=== PATIENT | female | born 1960 | race African-American/Black ===

== ENCOUNTER 2019-11-18 11:15 | Inpatient (IN) | payer OTHER ==
[2019-11-18 11:36] VITALS: BMI 25.9
--- NOTE | 2019-11-18 12:01 | HP ---
CIWA Score Nausea/Vomitin-No Nausea/No Vomiting Muscle Tremors: None Anxiety: 3 Agitation: 4-Moderately Restless Paroxysmal Sweats: 3 Orientation: 3-Disoriented Date>2 days Tacttile Disturbances: 0-None Auditory Disturbances: 0-None Visual Disturbances: 0-None Headache: 0-None Present CIWA-Ar Total Score: 13 - Admission Criteria OASAS Guidelines: Admission for Medically Managed Detox: Requires at least one of the followin. CIWA greater than 12 2. Seizures within the past 24 hours 3. Delirium tremens within the past 24 hours 4. Hallucinations within the past 24 hours 5. Acute intervention needed for co occurring medical disorder 6. Acute intervention needed for co occurring psychiatric disorder 7. Severe withdrawal that cannot be handled at a lower level of care (continued vomiting, continued diarrhea, abnormal vital signs) requiring intravenous medication and/or fluids 8. Admitting History and Physical - Admission Chief Complaint: " I want to be here because I need the help in staying away from drugs and alcohol." History of Present Illness: 59 year old female with history al alcohol dependence with withdrawals and cocaine use disorder. She is drinking 1 6pack of beer daily, 12 0z cans, she last drank yesterday. She was at [facility] after having a verbal altercation with her . [facility] referred her here for detox. She does remember having blackout a year ago, seizures on withdrawal. She has been drinking since the age of [age] years old. She was abstinent when she was incarcerated about 6 months but does not remember exactly when that was. She is smoking crack $50 daily on weekends, last used yesterday. She smokes ciggarettes only when she is using other substances PMH: None Psurg: None; ectopic many years ago Patient has no legal issues at this moment. Patient is not homeless. History Source: Patient Limitations to Obtaining History: No Limitations Admission ROS BHS - HPI Exam Limitations: No Limitations - Ebola screening Have you traveled outside of the country in the last 21 days: No Have you had contact with anyone from an Ebola affected area: No Have you been sick,other than usual withdrawal symptoms: No Do you have a fever: No - Review of Systems Constitutional: Chills EENT: reports: No Symptoms Reported Respiratory: reports: No Symptoms reported Cardiac: reports: No Symptoms Reported GI: reports: Abdominal cramping : reports: No Symptoms Reported Musculoskeletal: reports: No Symptoms Reported Integumentary: reports: No Symptoms Reported Neuro: reports: No Symptoms reported Endocrine: reports: No Symptoms Reported Hematology: reports: No Symptoms Reported Psychiatric: reports: Judgement Intact, Mood/Affect Appropiate, Orientated x3 Other Systems: Reviewed and Negative Patient History - Patient Medical History Hx Anemia: No Hx Asthma: No Hx Chronic Obstructive Pulmonary Disease (COPD): No Hx Cancer: No Hx Cardiac Disorders: No Hx Congestive Heart Failure: No Hx Hypertension: No Hx Hypercholesterolemia: No Hx Pacemaker: No HX Cerebrovascular Accident: No Hx Seizures: No Hx Dementia: No Hx Diabetes: No Hx Gastrointestinal Disorders: No Hx Liver Disease: No Hx Genitourinary Disorders: No Hx Sexually Transmitted Disorders: No Hx Renal Disease (ESRD): No Hx Thyroid Disease: No Hx Human Immunodeficiency Virus (HIV): No Hx Hepatitis C: No Hx Depression: No Hx Suicide Attempt: No Hx Bipolar Disorder: No Hx Schizophrenia: No - Patient Surgical History Past Surgical History: No - PPD History Previous Implant?: No Documented Results: Positive w/o proof Implanted On Prior R Admission?: No Results: positive PPD to be Administered?: No - Smoking Cessation Smoking history: Current some day smoker Have you smoked in the past 12 months: Yes Aproximately how many cigarettes per day: 4 Hx Chewing Tobacco Use: No Initiated information on smoking cessation: No - Substances abused Alcohol Substance route: Oral Frequency: Daily Amount used: 6 pack beers Age of first use: 10 Date of last use: 11/17/19 Crack Substance route: Smoking Frequency: 1-2 times per week Amount used: $60 Age of first use: 25 Date of last use: 11/17/19 Admission Physical Exam BHS - Vital Signs Vital Signs: Vital Signs - 24 hr 11/18/19 11:24 Temperature 97 F L Pulse Rate 64 Respiratory 18 Rate Blood Pressure 144/71 - Physical General Appearance: Yes: No Apparent Distress, Thin, Tremorous, Irritable, Anxious HEENTM: Yes: EOMI, Hearing grossly Normal, Normal ENT Inspection, Normocephalic , Normal Voice, EM, Pharynx Normal, Tm's normal Respiratory: Yes: Chest Non-Tender, Lungs Clear, Normal Breath Sounds, No Respiratory Distress, No Accessory Muscle Use Neck: Yes: No masses,lesions,Nodules, Supple, Trachea in good position Breast: Yes: Within Normal Limits Cardiology: Yes: Regular Rhythm, Regular Rate, S1, S2 Abdominal: Yes: Normal Bowel Sounds, Non Tender, Flat, Soft, Surgical Scar Back: Yes: Normal Inspection Musculoskeletal: Yes: full range of Motion, Gait Steady, Pelvis Stable Extremities: Yes: Normal Capillary Refill, Normal Inspection, Normal Range of Motion, Non-Tender Neurological: Yes: cake cutter machine II-XII NML intact, Fully Oriented, Alert, Motor Strength 5/5, Normal Mood/Affect, Normal Response Integumentary: Yes: Normal Color, Warm Lymphatic: Yes: Within Normal Limits - Diagnostic (1) Alcohol dependence with withdrawal Current Visit: Yes Status: Acute (2) Asthma Current Visit: Yes Status: Acute (3) Cocaine use disorder Current Visit: Yes Status: Acute (4) Nicotine dependence Current Visit: Yes Status: Acute Cleared for Admission S - Detox or Rehab [facility] Level of Care: Medically Managed Detox Regimen/Protocol: Librium Claeared for Rehab Admission: No Screened but not Admitted - Documentation of Visit Screened but not Admitted: No Inpatient Rehab Admission - Rehab Decision to Admit Inpatient rehab admission?: No
[2019-11-18] MEDS ORDERED: MENTHOL/PHENOL 1 EACH UD MM PRN (12:10)
[2019-11-18] MEDS ORDERED: MELATONIN 5 MG TABLETS PO PRN (12:10)
[2019-11-18] MEDS ORDERED: hydrOXYzine PAMOATE 25 MG CAPSULE (FP) PO PRN (12:10)
[2019-11-18] MEDS ORDERED: ACETAMINOPHEN 325 MG TABLET (FP) PO PRN ×2 (12:10)
[2019-11-18] MEDS ORDERED: IBUPROFEN 400 MG TABLET (FP) PO PRN (12:10)
[2019-11-18] MEDS ORDERED: MAGNESIUM CITRATE 300 ML BOTTLE PO PRN (12:10)
[2019-11-18] MEDS ORDERED: METHOCARBAMOL 500 MG TABLET PO PRN (12:10)
[2019-11-18] MEDS ORDERED: BISMUTH SUBSALICYLATE 262 MG/15 ML BTL PO PRN (12:10)
[2019-11-18] MEDS ORDERED: chlordiazePOXIDE HCL 25 MG CAPSULE PO PRN (12:10)
[2019-11-18] MEDS ORDERED: MAGNESIUM HYDROX 2400MG/30ML ORAL SUSPENSION 30 ML CUP PO PRN (12:10)
[2019-11-18] MEDS ORDERED: MAG HYDROX/AL HYDROX/SIMETH 30 ML UNIT-DOSE CUP PO PRN (12:10)
[2019-11-18] MEDS: chlordiazePOXIDE HCL 25 MG CAPSULE PO SCH ×3 (12:59→22:15)
[2019-11-18 14:31] LABS: HEMATOCRIT 40.7 % (32.4-45.2); HEMOGLOBIN 13.7 GM/dL (10.7-15.3); MCH 30.3 pg (25.7-33.7); MCHC 33.6 g/dl (32.0-36.0); MEAN CELL VOLUME 89.9 fl (80-96); MEAN PLT VOLUME 9.5 fl (7.5-11.1); PLATELET COUNT 317 K/MM3 (134-434); RBC 4.52 M/mm3 (3.60-5.2); RDW 15.4 % (11.6-15.6); WHITE BLOOD COUNT 8.6 K/mm3 (4.0-10.0)
[2019-11-18 14:32] LABS: ALBUMIN 3.9 g/dl (3.4-5.0); BILIRUBIN,TOTAL 0.5 mg/dL (0.2-1); BLOOD UREA NITROGEN 12.7 mg/dL (7-18); CALCIUM 9.1 mg/dL (8.5-10.1); CREATININE 0.9 mg/dL (0.55-1.3); POTASSIUM 4.3 mmol/L (3.5-5.1); TOT PROT 7.8 g/dl (6.4-8.2)
[2019-11-18] MEDS: THIAMINE HCL 100 MG TABLET (FP) PO SCH (22:15)
[2019-11-18] MEDS: diphenhydrAMINE HCL 25 MG CAPSULE (FP) PO SCH (23:06)
[2019-11-19] MEDS: chlordiazePOXIDE HCL 25 MG CAPSULE PO SCH ×4 (06:33→23:37)
[2019-11-19] MEDS: PRENATAL VITAMINS W/ FOLIC ACID TABLET (FP) PO SCH (10:37)
--- NOTE | 2019-11-19 10:49 | PN ---
[facility] CIWA - CIWA Score Nausea/Vomitin-No Nausea/No Vomiting Muscle Tremors: 3 Anxiety: 2 Agitation: 3 Paroxysmal Sweats: 2 Orientation: 0-Oriented Tacttile Disturbances: 0-None Auditory Disturbances: 0-None Visual Disturbances: 0-None Headache: 0-None Present CIWA-Ar Total Score: 10 [facility] Progress Note (SOAP) Subjective: sweats shakes irritable tired Objective: 11/19/19 10:49 Vital Signs Temperature 97.3 F L 11/19/19 09:24 Pulse Rate 74 11/19/19 09:24 Respiratory Rate 18 11/19/19 09:24 Blood Pressure 140/79 11/19/19 09:24 O2 Sat by Pulse Oximetry (%) Laboratory Tests 11/18/19 11/18/19 11/18/19 12:01 12:30 12:30 WBC 8.6 RBC 4.52 Hgb 13.7 Hct 40.7 MCV 89.9 MCH 30.3 MCHC 33.6 RDW 15.4 Plt Count 317 MPV 9.5 Sodium 143 Potassium 4.3 Chloride 110 H Carbon Dioxide 26 Anion Gap 8 BUN 12.7 Creatinine 0.9 Est GFR (CKD-EPI)AfAm 79.98 Est GFR (CKD-EPI)NonAf 69.01 Random Glucose 110 H Calcium 9.1 Total Bilirubin 0.5 AST 26 ALT 25 Alkaline Phosphatase 86 Total Protein 7.8 Albumin 3.9 POC Urine HCG, Qual Negative RPR Titer HIV 1&2 Antibody Screen HIV P24 Antigen 11/18/19 11/18/19 12:30 12:30 WBC RBC Hgb Hct MCV MCH MCHC RDW Plt Count MPV Sodium Potassium Chloride Carbon Dioxide Anion Gap BUN Creatinine Est GFR (CKD-EPI)AfAm Est GFR (CKD-EPI)NonAf Random Glucose Calcium Total Bilirubin AST ALT Alkaline Phosphatase Total Protein Albumin POC Urine HCG, Qual RPR Titer Nonreactive HIV 1&2 Antibody Screen Negative HIV P24 Antigen Negative aaox3 ambulating no acute distress Assessment: 11/19/19 10:49 withdrawals Plan: continue detox increase fluids
[2019-11-19] MEDS: THIAMINE HCL 100 MG TABLET (FP) PO SCH (23:37)
[2019-11-19] MEDS: diphenhydrAMINE HCL 25 MG CAPSULE (FP) PO SCH (23:37)
[2019-11-20] MEDS: chlordiazePOXIDE HCL 25 MG CAPSULE PO SCH ×4 (06:14→22:45)
[2019-11-20] MEDS: PRENATAL VITAMINS W/ FOLIC ACID TABLET (FP) PO SCH (10:43)
--- NOTE | 2019-11-20 13:39 | PN ---
[facility] CIWA - CIWA Score Nausea/Vomitin-No Nausea/No Vomiting Muscle Tremors: 2 Anxiety: 3 Agitation: 2 Paroxysmal Sweats: 1-Minimal Palms Moist Orientation: 0-Oriented Tacttile Disturbances: 1-Very Mild Itch/Numbness Auditory Disturbances: 0-None Visual Disturbances: 1-Very Mild Sensitivity Headache: 0-None Present CIWA-Ar Total Score: 10 S Progress Note (SOAP) Subjective: c/o interrupted sleep, irritable, chills Objective: 11/20/19 13:37 Vital Signs Temperature 97.5 F L 11/20/19 10:15 Pulse Rate 79 11/20/19 10:15 Respiratory Rate 18 11/20/19 10:15 Blood Pressure 153/71 11/20/19 10:15 O2 Sat by Pulse Oximetry (%) Laboratory Last Values WBC 8.6 K/mm3 (4.0-10.0) 11/18/19 12:30 RBC 4.52 M/mm3 (3.60-5.2) 11/18/19 12:30 Hgb 13.7 GM/dL (10.7-15.3) 11/18/19 12:30 Hct 40.7 % (32.4-45.2) 11/18/19 12:30 MCV 89.9 fl (80-96) 11/18/19 12:30 MCH 30.3 pg (25.7-33.7) 11/18/19 12:30 MCHC 33.6 g/dl (32.0-36.0) 11/18/19 12:30 RDW 15.4 % (11.6-15.6) 11/18/19 12:30 Plt Count 317 K/MM3 (134-434) 11/18/19 12:30 MPV 9.5 fl (7.5-11.1) 11/18/19 12:30 Sodium 143 mmol/L (136-145) 11/18/19 12:30 Potassium 4.3 mmol/L (3.5-5.1) 11/18/19 12:30 Chloride 110 mmol/L (98-107) H 11/18/19 12:30 Carbon Dioxide 26 mmol/L (21-32) 11/18/19 12:30 Anion Gap 8 MMOL/L (8-16) 11/18/19 12:30 BUN 12.7 mg/dL (7-18) 11/18/19 12:30 Creatinine 0.9 mg/dL (0.55-1.3) 11/18/19 12:30 Est GFR (CKD-EPI)AfAm 79.98 11/18/19 12:30 Est GFR (CKD-EPI)NonAf 69.01 11/18/19 12:30 Random Glucose 110 mg/dL (74-106) H 11/18/19 12:30 Calcium 9.1 mg/dL (8.5-10.1) 11/18/19 12:30 Total Bilirubin 0.5 mg/dL (0.2-1) 11/18/19 12:30 AST 26 U/L (15-37) 11/18/19 12:30 ALT 25 U/L (13-61) 11/18/19 12:30 Alkaline Phosphatase 86 U/L (45-117) 11/18/19 12:30 Total Protein 7.8 g/dl (6.4-8.2) 11/18/19 12:30 Albumin 3.9 g/dl (3.4-5.0) 11/18/19 12:30 POC Urine HCG, Qual Negative 11/18/19 12:01 RPR Titer Nonreactive (NONREACTIVE) 11/18/19 12:30 HIV 1&2 Antibody Screen Negative 11/18/19 12:30 HIV P24 Antigen Negative 11/18/19 12:30 Assessment: 11/20/19 13:38 Aox3 no acute distress Full ROM ambulating in the unit withdrawal sx Plan: continue detox increase fluids continue to monitor
[2019-11-20] MEDS: diphenhydrAMINE HCL 25 MG CAPSULE (FP) PO SCH (22:45)
[2019-11-20] MEDS: THIAMINE HCL 100 MG TABLET (FP) PO SCH (22:46)
[2019-11-21] MEDS ORDERED: chlordiazePOXIDE HCL 10 MG CAPSULE PO PRN
[2019-11-21] MEDS: chlordiazePOXIDE HCL 10 MG CAPSULE PO SCH ×4 (06:19→22:25)
[2019-11-21] MEDS: PRENATAL VITAMINS W/ FOLIC ACID TABLET (FP) PO SCH (10:06)
--- NOTE | 2019-11-21 13:35 | PN ---
[facility] CIWA - CIWA Score Nausea/Vomitin-No Nausea/No Vomiting Muscle Tremors: None Anxiety: 3 Agitation: 0-Normal Activity Paroxysmal Sweats: 3 Orientation: 0-Oriented Tacttile Disturbances: 0-None Auditory Disturbances: 0-None Visual Disturbances: 0-None Headache: 2-Mild CIWA-Ar Total Score: 8 [facility] Progress Note (SOAP) Subjective: c/o anxiety, sweats, and headache. Objective: 11/21/19 13:34 Vital Signs 11/21/19 11/21/19 11/21/19 07:38 09:42 13:03 Temperature 97.9 F 98.2 F 97.7 F Pulse Rate 68 82 69 Respiratory 18 18 18 Rate Blood Pressure 145/75 131/65 144/71 Laboratory Last Values WBC 8.6 K/mm3 (4.0-10.0) 11/18/19 12:30 RBC 4.52 M/mm3 (3.60-5.2) 11/18/19 12:30 Hgb 13.7 GM/dL (10.7-15.3) 11/18/19 12:30 Hct 40.7 % (32.4-45.2) 11/18/19 12:30 MCV 89.9 fl (80-96) 11/18/19 12:30 MCH 30.3 pg (25.7-33.7) 11/18/19 12:30 MCHC 33.6 g/dl (32.0-36.0) 11/18/19 12:30 RDW 15.4 % (11.6-15.6) 11/18/19 12:30 Plt Count 317 K/MM3 (134-434) 11/18/19 12:30 MPV 9.5 fl (7.5-11.1) 11/18/19 12:30 Sodium 143 mmol/L (136-145) 11/18/19 12:30 Potassium 4.3 mmol/L (3.5-5.1) 11/18/19 12:30 Chloride 110 mmol/L (98-107) H 11/18/19 12:30 Carbon Dioxide 26 mmol/L (21-32) 11/18/19 12:30 Anion Gap 8 MMOL/L (8-16) 11/18/19 12:30 BUN 12.7 mg/dL (7-18) 11/18/19 12:30 Creatinine 0.9 mg/dL (0.55-1.3) 11/18/19 12:30 Est GFR (CKD-EPI)AfAm 79.98 11/18/19 12:30 Est GFR (CKD-EPI)NonAf 69.01 11/18/19 12:30 Random Glucose 110 mg/dL (74-106) H 11/18/19 12:30 Calcium 9.1 mg/dL (8.5-10.1) 11/18/19 12:30 Total Bilirubin 0.5 mg/dL (0.2-1) 11/18/19 12:30 AST 26 U/L (15-37) 11/18/19 12:30 ALT 25 U/L (13-61) 11/18/19 12:30 Alkaline Phosphatase 86 U/L (45-117) 11/18/19 12:30 Total Protein 7.8 g/dl (6.4-8.2) 11/18/19 12:30 Albumin 3.9 g/dl (3.4-5.0) 11/18/19 12:30 POC Urine HCG, Qual Negative 11/18/19 12:01 RPR Titer Nonreactive (NONREACTIVE) 11/18/19 12:30 HIV 1&2 Antibody Screen Negative 11/18/19 12:30 HIV P24 Antigen Negative 11/18/19 12:30 Labs noted. Assessment: 11/21/19 13:35 AOX3, in no acute respiratory distress. Full ROM, ambulating in the unit. Withdrawal symptoms. Plan: continue detox. Increase fluids.
[2019-11-21] MEDS: THIAMINE HCL 100 MG TABLET (FP) PO SCH (22:25)
[2019-11-21] MEDS: diphenhydrAMINE HCL 25 MG CAPSULE (FP) PO SCH (22:30)
[2019-11-22] MEDS ORDERED: chlordiazePOXIDE HCL 10 MG CAPSULE PO SCH (05:00)
[2019-11-22 09:48] VITALS: BP 132/78; PULSE 77; TEMP 97.9
--- NOTE | 2019-11-22 10:10 | DS ---
[facility] Detox Discharge Summary Admission Date: 11/18/19 Discharge Date: 11/22/19 - History Present History: Alcohol Dependence, Cocaine Dependence Pertinent Past History: Pt admitted for alcohol detox, also with h/o cocaine use disorder. O: Vital Signs - 24 hr 11/21/19 11/21/19 11/21/19 13:03 17:17 21:34 Temperature 97.7 F 98.1 F 97.1 F L Pulse Rate 69 74 75 Respiratory 18 18 18 Rate Blood Pressure 144/71 143/92 146/69 11/22/19 11/22/19 11/22/19 00:30 03:30 06:00 Temperature 97.7 F Pulse Rate 68 Respiratory 16 16 18 Rate Blood Pressure 101/62 11/22/19 09:48 Temperature 97.9 F Pulse Rate 77 Respiratory 18 Rate Blood Pressure 132/78 Laboratory Tests 11/18/19 11/18/19 11/18/19 12:01 12:30 12:30 WBC 8.6 RBC 4.52 Hgb 13.7 Hct 40.7 MCV 89.9 MCH 30.3 MCHC 33.6 RDW 15.4 Plt Count 317 MPV 9.5 Sodium 143 Potassium 4.3 Chloride 110 H Carbon Dioxide 26 Anion Gap 8 BUN 12.7 Creatinine 0.9 Est GFR (CKD-EPI)AfAm 79.98 Est GFR (CKD-EPI)NonAf 69.01 Random Glucose 110 H Calcium 9.1 Total Bilirubin 0.5 AST 26 ALT 25 Alkaline Phosphatase 86 Total Protein 7.8 Albumin 3.9 POC Urine HCG, Qual Negative RPR Titer HIV 1&2 Antibody Screen HIV P24 Antigen 11/18/19 11/18/19 12:30 12:30 WBC RBC Hgb Hct MCV MCH MCHC RDW Plt Count MPV Sodium Potassium Chloride Carbon Dioxide Anion Gap BUN Creatinine Est GFR (CKD-EPI)AfAm Est GFR (CKD-EPI)NonAf Random Glucose Calcium Total Bilirubin AST ALT Alkaline Phosphatase Total Protein Albumin POC Urine HCG, Qual RPR Titer Nonreactive HIV 1&2 Antibody Screen Negative HIV P24 Antigen Negative a/p: AUD- pt needs to leave a bit early. Will f/u with [facility]. Has PCP appt today. does not need any meds - Physical Exam Results Vital Signs: Vital Signs Temperature 97.9 F 11/22/19 09:48 Pulse Rate 77 11/22/19 09:48 Respiratory Rate 18 11/22/19 09:48 Blood Pressure 132/78 11/22/19 09:48 O2 Sat by Pulse Oximetry (%) - Treatment Hospital Course: Detox Protocol Followed, Detoxed Safely, Responded well, Discharged Condition Good - Medication Discharge Medications: Ambulatory Orders Diphenhydramine HCl [Benadryl Capsule -] 25 mg PO HS 11/18/19 - AMA Did Patient Leave Against Medical Advice: No
[2019-11-23] MEDS ORDERED: chlordiazePOXIDE HCL 10 MG CAPSULE PO ONE (05:00)
== END 2019-11-22 10:29 | disposition home or self-care (01) | DRG 897 ==
LOC: YASAS 11:15 → Y6N 12:28
PROVIDERS: ADMIT Allergy & Immunology; ATTEND Allergy & Immunology
PROC: HZ2ZZZZ Detoxification Services for Substance Abuse Treatment (ICD-10-PCS; principal; 2019-11-18)
DX: F10.230 Alcohol dependence with withdrawal, uncomplicated (principal); F14.20 Cocaine dependence, uncomplicated; F17.210 Nicotine dependence, cigarettes, uncomplicated
CPT/HCPCS: 36415; 80053; 81025; 85027; 86593; 87389